=== PATIENT | male | born 1990 | race African-American/Black ===

== ENCOUNTER 2017-06-11 03:06 | Emergency (ER) | payer SELFPAY ==
[~2017-06-11] VITALS: Ht 172.7 cm; Wt 68.0 kg
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
--- NOTE | 2017-06-11 03:20 | NUR ---
[employer] AT BEDSIDE.
[2017-06-11] MEDS ORDERED: IBUPROFEN 400 MG TABLET ONE (03:22)
[2017-06-11] MEDS ORDERED: IBUPROFEN 400 MG TABLET PO ONE (03:30)
--- NOTE | 2017-06-11 03:48 | NUR ---
TO TO CT VIA STRETCHER.
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
--- NOTE | 2017-06-11 06:46 | NUR ---
Patient discharged with friend to home in stable condition. Written and verbal after care instructions given. Patient verbalizes understanding of instruction. Patient discharged by wheelchair.
[2017-06-11 06:47] VITALS: BP 115/67
== END 2017-06-11 06:48 | disposition home or self-care (01) ==
LOC: ER 03:12
DX: S00.83XA Contusion of other part of head, initial encounter (principal); F10.129 Alcohol abuse with intoxication, unspecified; Y04.0XXA Assault by unarmed brawl or fight, initial encounter; Y93.89 Activity, other specified; Y92.89 Other specified places as the place of occurrence of the external cause; Y99.8 Other external cause status
CPT/HCPCS: 70450; 70486; 72125; 99284; A4606; Z7610